=== PATIENT | female | born 1985 | race American Indian/Alaskan Native ===

== ENCOUNTER 2017-04-18 14:30 | Emergency (ER) | payer MEDICAID ==
--- NOTE | 2017-04-18 21:00 | Emergency Department Report ---
ED ENT HPI - General Chief complaint: Back Pain/Injury Stated complaint: LOWER BACK PAIN/RT EAR PAIN Time Seen by Provider: 04/18/17 20:20 Source: patient Mode of arrival: Ambulatory Limitations: No Limitations - History of Present Illness Initial comments: This is a 31-year-old female nontoxic, well nourished in appearance, no acute signs of distress presents to the ED complaining of right earache 4 days. Patient denies any trauma to the region. Patient denies any hearing loss, fever , chills, stiff neck, headache, nausea, vomiting, chest pain or shortness of breath. Patient also complaining of lower back pain intermittently 2 months. 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 Patient also denies any trauma to the back. Patient denies any numbness or tingling. Patient described pain with level of 7 out of 10 that is described as aching. Patient denies any allergies. Denies any significant past medical history. MD complaint: ear pain, other (back pain) -: Gradual, days(s) (4) Location: R ear Severity: mild Severity scale (0 -10): 8 Quality: aching Consistency: constant Improves with: none Worsens with: none Associated Symptoms: denies: fever, cough, gum swelling, toothache, pain with swallowing, sore throat, tinnitus, hearing loss, discharge from ear, rhinorrhea - Related Data Previous Rx's Medication Instructions Recorded Last Taken Type Amoxicillin 500 mg PO BID #20 capsule 04/18/17 Unknown Rx Ibuprofen [Motrin 600 MG tab] 600 mg PO Q8H PRN #30 tablet 04/18/17 Unknown Rx Allergies Allergy/AdvReac Type Severity Reaction Status Date / Time No Known Allergies Allergy Unverified 04/18/17 15:05 ED Dental HPI - General Chief complaint: Back Pain/Injury Stated complaint: LOWER BACK PAIN/RT EAR PAIN Time Seen by Provider: 04/18/17 20:20 Source: patient Mode of arrival: Ambulatory Limitations: No Limitations - Related Data Previous Rx's Medication Instructions Recorded Last Taken Type Amoxicillin 500 mg PO BID #20 capsule 04/18/17 Unknown Rx Ibuprofen [Motrin 600 MG tab] 600 mg PO Q8H PRN #30 tablet 04/18/17 Unknown Rx Allergies Allergy/AdvReac Type Severity Reaction Status Date / Time No Known Allergies Allergy Unverified 04/18/17 15:05 ED Review of Systems ROS: Stated complaint: LOWER BACK PAIN/RT EAR PAIN Other details as noted in HPI Constitutional: denies: chills, fever Eyes: denies: eye pain, eye discharge, vision change ENT: ear pain. denies: throat pain Respiratory: denies: cough, shortness of breath, wheezing Cardiovascular: denies: chest pain, palpitations Endocrine: no symptoms reported Gastrointestinal: denies: abdominal pain, nausea, diarrhea Genitourinary: denies: urgency, dysuria, discharge Musculoskeletal: denies: back pain, joint swelling, arthralgia Skin: denies: rash, lesions Neurological: denies: headache, weakness, paresthesias Psychiatric: denies: anxiety, depression Hematological/Lymphatic: denies: easy bleeding, easy bruising ED Past Medical Hx - Past Medical History Previous Medical History?: Yes Additional medical history: back pain, vaginal delivery 09-29-2002 - Surgical History Past Surgical History?: No - Social History Smoking Status: Never Smoker Substance Use Type: Non Opiate Pain - Medications Home Medications: Home Medications Medication Instructions Recorded Confirmed Last Taken Type Amoxicillin 500 mg PO BID #20 capsule 04/18/17 Unknown Rx Ibuprofen [Motrin 600 MG tab] 600 mg PO Q8H PRN #30 tablet 04/18/17 Unknown Rx ED Physical Exam - General Limitations: No Limitations General appearance: alert, in no apparent distress - Head Head exam: Present: atraumatic, normocephalic, normal inspection - Eye Eye exam: Present: normal appearance, PERRL, EOMI. Absent: scleral icterus, conjunctival injection, nystagmus, periorbital swelling, periorbital tenderness Pupils: Present: normal accommodation - ENT ENT exam: Present: normal exam, normal orophraynx, mucous membranes moist, normal external ear exam - Expanded ENT Exam Expanded Ear exam: Present: normal external inspection TM/Canal exam: Erythema: Right TM, Bulging: Right TM Mouth exam: Present: normal external inspection, tongue normal. Absent: drooling, trismus, muffled voice, tongue elevation, laceration Teeth exam: Present: normal inspection Throat exam: Positive: normal inspection. Negative: tonsillar erythema, tonsillomegaly, tonsillar exudate, R peritonsillar mass, L peritonsillar mass - Neck Neck exam: Present: normal inspection, full ROM. Absent: tenderness, meningismus, lymphadenopathy, thyromegaly - Respiratory Respiratory exam: Present: normal lung sounds bilaterally. Absent: respiratory distress, wheezes, rales, rhonchi, stridor, chest wall tenderness, accessory muscle use, decreased breath sounds, prolonged expiratory - Cardiovascular Cardiovascular Exam: Present: regular rate, normal rhythm. Absent: systolic murmur, diastolic murmur, rubs, gallop - GI/Abdominal GI/Abdominal exam: Present: soft, normal bowel sounds. Absent: distended, tenderness, guarding, rebound, rigid, diminished bowel sounds - Rectal Rectal exam: Present: deferred - Extremities Exam Extremities exam: Present: normal inspection, full ROM, normal capillary refill. Absent: tenderness, pedal edema, joint swelling, calf tenderness - Back Exam Back exam: Present: normal inspection, full ROM, paraspinal tenderness (lumbar region). Absent: tenderness, CVA tenderness (R), CVA tenderness (L), muscle spasm, vertebral tenderness, rash noted - Neurological Exam Neurological exam: Present: alert, oriented X3, CN II-XII intact, normal gait, reflexes normal - Psychiatric Psychiatric exam: Present: normal affect, normal mood - Skin Skin exam: Present: warm, dry, intact, normal color. Absent: rash ED Course Vital Signs 04/18/17 15:05 Temperature 98.8 F Pulse Rate 84 Respiratory 16 Rate Blood Pressure 119/85 O2 Sat by Pulse 100 Oximetry - Reevaluation(s) Reevaluation #1: 04/18/17 21:02 Patient is speaking in full sentences with no signs of distress noted. Critical care attestation.: If time is entered above; I have spent that time in minutes in the direct care of this critically ill patient, excluding procedure time. ED Disposition Clinical Impression: Otitis media Qualifiers: Otitis media type: unspecified Chronicity: unspecified Laterality: right Qualified Code(s): H66.91 - Otitis media, unspecified, right ear Low back strain Qualifiers: Encounter type: initial encounter Qualified Code(s): S39.012A - Strain of muscle, fascia and tendon of lower back, initial encounter Disposition: TO HOME OR SELFCARE Is pt being admited?: No Does the pt Need Aspirin: No Condition: Stable Instructions: Low Back Strain (ED), Otitis Media (ED) Additional Instructions: Follow-up with a primary care doctor in 3-5 days or if symptoms worsen and continue return to emergency room as soon as possible possible. Prescriptions: Amoxicillin 500 mg PO BID #20 capsule Ibuprofen [Motrin 600 MG tab] 600 mg PO Q8H PRN #30 tablet PRN Reason: Pain Referrals: PRIMARY CAREMD [Primary Care Provider] - 3-5 Days SRINATH VILLAFUERTE MD [Staff Physician] - 3-5 Days [facility] [Outside] - 3-5 Days [facility] [Outside] - 3-5 Days Forms: Work/School Release Form(ED)
[2017-04-19 00:36] VITALS: BP 120/81
== END 2017-04-18 21:35 | disposition home or self-care (01) ==
LOC: ED 14:30
DX: S39.012A Strain of muscle, fascia and tendon of lower back, initial encounter (principal); H66.91 Otitis media, unspecified, right ear; X50.1XXA Overexertion from prolonged static or awkward postures, initial encounter; X50.3XXA Overexertion from repetitive movements, initial encounter; Y93.89 Activity, other specified; Y92.89 Other specified places as the place of occurrence of the external cause; Y99.8 Other external cause status
CPT/HCPCS: 99282

== ENCOUNTER 2018-10-03 21:29 | Emergency (ER) | payer MEDICAID ==
[2018-10-03 22:21] VITALS: BP 131/86
[2018-10-04] MEDS ORDERED: TYLENOL ONE (01:19)
[2018-10-04] MEDS ORDERED: TYLENOL PO ONE (01:24)
[2018-10-04 01:40] LABS: Hematocrit 34.7 % (30.3-42.9); Mean Corpuscular HGB Conc 32 % (30-34); Platelet Count 291 K/mm3 (140-440); Red Blood Count 5.61 M/mm3 (3.65-5.03)
[2018-10-04 01:41] LABS: Mean Corpuscular Volume 62 fl (79-97); Red Cell Distribution Width 20.1 % (13.2-15.2)
[2018-10-04 02:07] LABS: Alanine Aminotransferase 19 units/L (7-56); Albumin 4.1 g/dL (3.9-5); BUN/Creatinine Ratio 13; Blood Urea Nitrogen 9 mg/dL (7-17); Calcium 9.1 mg/dL (8.4-10.2); Hemolysis Index 3
[2018-10-04 03:28] LABS: Bilirubin,Urine NEG (Negative); Blood,Urine NEG (Negative); Color,Urine Yellow (Yellow); Mucus,Urine FEW /HPF; Protein,Urine <15 mg/dL mg/dL (Negative); Urobilinogen,Urine < 2.0 mg/dL (<2.0)
--- NOTE | 2018-10-04 03:40 | XRay Report ---
PROCEDURE: XR CHEST ROUTINE 2V TECHNIQUE: PA and lateral chest radiographs were obtained. HISTORY: Productive cough with Chest Pain COMPARISONS: None. FINDINGS: Heart: Normal. Mediastinum/Vessels: Normal. Lungs/Pleural space: The lungs are expanded. There are faint left upper lobe infiltrates. There are no effusions or pneumothoraces.. Bony thorax: No acute osseous abnormality. IMPRESSION: The heart size is normal.. The lungs are expanded. There are faint left upper lobe infiltrates. There are no effusions or pneumo thoraces.. This document is electronically signed by Ayad Melo MD., October 04 2018 03:38:45 AM ET
[2018-10-04] MEDS ORDERED: DECADRON IM ONE (03:57)
[2018-10-04] MEDS ORDERED: BENADRYL PO ONE (03:57)
[2018-10-04] MEDS ORDERED: IBUPROFEN PO ONE (03:58)
[2018-10-04] MEDS ORDERED: TRIMOX PO ONE (04:10)
--- NOTE | 2018-10-04 04:11 | Emergency Department Report ---
ED General Adult HPI - General Chief complaint: Nausea/Vomiting/Diarrhea Stated complaint: CHEST PAIN/VOMITING/HEADACHE Time Seen by Provider: 10/04/18 03:38 Source: patient Mode of arrival: Ambulatory Limitations: No Limitations - History of Present Illness Initial comments: Patient with 2-year-old Afro-[place]ian female who presents for nausea vomiting p ostnasal drip sore throat for 1 week history of recurring sinusitis please this is sinusitis patient given Decadron Benadryl ibuprofen with some improvement however now she endorses cough that is productive green. Onset/Timin -: week(s) Location: head, face, chest Radiation: non-radiation Severity scale (0 -10): 7 Quality: sharp Consistency: constant Improves with: rest Worsens with: other (activity ) Associated Symptoms: chest pain, cough, fever/chills, headaches, nausea/vomiting Treatments Prior to Arrival: none - Related Data Previous Rx's Medication Instructions Recorded Last Taken Type Amoxicillin 500 mg PO BID #20 capsule 04/18/17 Unknown Rx Ibuprofen [Motrin 600 MG tab] 600 mg PO Q8H PRN #30 tablet 04/18/17 Unknown Rx ALBUTEROL Inhaler(NF) [VENTOLIN 2 puff IH Q4H PRN #1 inha 10/04/18 Unknown Rx Inhaler(NF)] Azithromycin [Zithromax Z-LUIS] 250 mg PO DAILY #6 tab 10/04/18 Unknown Rx Ibuprofen 800 mg PO TID PRN #30 tablet 10/04/18 Unknown Rx guaiFENesin/CODEINE [Robitussin AC] 5 ml PO Q6H PRN #120 ml 10/04/18 Unknown Rx Allergies Allergy/AdvReac Type Severity Reaction Status Date / Time No Known Allergies Allergy Verified 10/03/18 21:33 ED Review of Systems ROS: Stated complaint: CHEST PAIN/VOMITING/HEADACHE Other details as noted in HPI Constitutional: chills, fever, malaise Eyes: denies: eye pain, eye discharge, vision change ENT: ear pain, throat pain, congestion Respiratory: cough, shortness of breath Cardiovascular: chest pain Endocrine: no symptoms reported Gastrointestinal: denies: abdominal pain, nausea, vomiting, diarrhea Genitourinary: denies: urgency, dysuria, discharge Musculoskeletal: denies: back pain, joint swelling, arthralgia Skin: denies: rash, lesions Neurological: headache. denies: weakness, paresthesias Psychiatric: denies: anxiety, depression Hematological/Lymphatic: denies: easy bleeding, easy bruising ED Past Medical Hx - Past Medical History Previous Medical History?: Yes Additional medical history: back pain, vaginal delivery 09-29-2002, Anemia with Blood transfusions - Surgical History Past Surgical History?: No - Social History Smoking Status: Never Smoker - Medications Home Medications: Home Medications Medication Instructions Recorded Confirmed Last Taken Type Amoxicillin 500 mg PO BID #20 capsule 04/18/17 Unknown Rx Ibuprofen [Motrin 600 MG tab] 600 mg PO Q8H PRN #30 tablet 04/18/17 Unknown Rx ALBUTEROL Inhaler(NF) [VENTOLIN 2 puff IH Q4H PRN #1 inha 10/04/18 Unknown Rx Inhaler(NF)] Azithromycin [Zithromax Z-LUIS] 250 mg PO DAILY #6 tab 10/04/18 Unknown Rx Ibuprofen 800 mg PO TID PRN #30 tablet 10/04/18 Unknown Rx guaiFENesin/CODEINE [Robitussin AC] 5 ml PO Q6H PRN #120 ml 10/04/18 Unknown Rx ED Physical Exam - General Limitations: No Limitations General appearance: alert, in no apparent distress - Head Head exam: Present: atraumatic, normocephalic - Eye Eye exam: Present: normal appearance, PERRL, EOMI Pupils: Present: normal accommodation - ENT ENT exam: Present: mucous membranes moist - Expanded ENT Exam Expanded Ear exam: Present: normal external inspection TM/Canal exam: Erythema: Right TM, Canal Tenderness: Right TM Mouth exam: Absent: trismus Throat exam: Positive: tonsillar erythema, tonsillomegaly, other (uvula midline no exudate no stridor ). Negative: tonsillar exudate, R peritonsillar mass, L peritonsillar mass - Neck Neck exam: Present: normal inspection, full ROM. Absent: tenderness, mening ismus, lymphadenopathy, thyromegaly - Respiratory Respiratory exam: Present: normal lung sounds bilaterally, chest wall tenderness (right lateral ). Absent: respiratory distress, wheezes, stridor - Cardiovascular Cardiovascular Exam: Present: regular rate, normal rhythm, normal heart sounds. Absent: systolic murmur, diastolic murmur, rubs, gallop - GI/Abdominal GI/Abdominal exam: Present: soft, normal bowel sounds. Absent: tenderness, rebound, bruit, hernia - Rectal Rectal exam: Present: deferred - Extremities Exam Extremities exam: Present: normal inspection, full ROM, normal capillary refill - Back Exam Back exam: Present: normal inspection, full ROM. Absent: CVA tenderness (R), CVA tenderness (L), muscle spasm, paraspinal tenderness, rash noted - Neurological Exam Neurological exam: Present: alert, oriented X3, CN II-XII intact, normal gait - Psychiatric Psychiatric exam: Present: normal affect, normal mood - Skin Skin exam: Present: warm, dry, intact, normal color. Absent: rash ED Course Vital Signs 10/03/18 10/04/18 10/04/18 22:19 01:08 01:25 Temperature 100.5 F H 100.5 F H Pulse Rate 101 H 100 H Respiratory 18 18 20 Rate Blood Pressure 131/86 131/86 O2 Sat by Pulse 99 99 Oximetry ED Medical Decision Making - Lab Data Result diagrams: 10/04/18 01:28 10/04/18 01:28 - Radiology Data Radiology results: report reviewed, image reviewed Ordering Physician: BARTOLOME UREÑA NP Date of Service: 10/04/18 Procedure(s): XR chest routine 2V Accession Number(s): [id number] cc: BARTOLOME UREÑA NP Fluoro Time In Minutes: PROCEDURE: XR CHEST ROUTINE 2V TECHNIQUE: PA and lateral chest radiographs were obtained. HISTORY: Productive cough with Chest Pain COMPARISONS: None. FINDINGS: Heart: Normal. Mediastinum/Vessels: Normal. Lungs/Pleural space: The lungs are expanded. There are faint left upper lobe infiltrates. There are no effusions or pneumothoraces.. Bony thorax: No acute osseous abnormality. IMPRESSION: The heart size is normal.. The lungs are expanded. There are faint left upper lobe infiltrates. There are no effusions or pneumothoraces.. This document is electronically signed by Ayad Chappell MD., October 04 2018 03:38:45 AM ET Transcribed By: CO Dictated By: AYAD CHAPPELL MD Electronically Authenticated By: AYAD CHAPPELL MD Signed Date/Time: 10/04/18 0340 DD/ TD/TT: 10/04/186 - Medical Decision Making Patient with 2-year-old Afro-[place]ian female who presents for nausea vomiting postnasal drip sore throat for 1 week history of recurring sinusitis please this is sinusitis patient given Decadron Benadryl ibuprofen with some improvement however now endorses cough that is productive green after chest x-ray shows mild infiltrates plan we'll treat for CAP Pneumonia patient follow up PCP in 2-3 days as symptoms are not improved is no shortness of breath there is no wheezing or respiratory distress Critical care attestation.: If time is entered above; I have spent that time in minutes in the direct care of this critically ill patient, excluding procedure time. ED Disposition Clinical Impression: CAP (community acquired pneumonia) Qualifiers: Laterality: right Lung location: upper lobe of lung Qualified Code(s): J18.1 - Lobar pneumonia, unspecified organism Disposition: TO HOME OR SELFCARE Is pt being admited?: No Does the pt Need Aspirin: No Condition: Stable Instructions: Community-acquired Pneumonia (ED), Upper Respiratory Infection (ED) Prescriptions: Ibuprofen 800 mg PO TID PRN #30 tablet PRN Reason: pain fever guaiFENesin/CODEINE [Robitussin AC] 5 ml PO Q6H PRN #120 ml PRN Reason: Cough ALBUTEROL Inhaler(NF) [VENTOLIN Inhaler(NF)] 2 puff IH Q4H PRN #1 inha PRN Reason: shortness of breath wheezing Azithromycin [Zithromax Z-LUIS] 250 mg PO DAILY #6 tab Referrals: DIONTE NICHOLSON MD [Staff Physician] - 3-5 Days Forms: Work/School Release Form(ED) Time of Disposition: 04:56
== END 2018-10-04 05:00 | disposition home or self-care (01) ==
LOC: ED 21:29
DX: J18.1 Lobar pneumonia, unspecified organism (principal)
CPT/HCPCS: 36415; 71046; 80053; 81001; 84703; 85027; 93005; 93010; 96372; 99284; J1100